=== PATIENT | female | born 1965 | race Caucasian/White ===

== ENCOUNTER → 2025-02-13 | Outpatient (CLI) | payer OTHER | LOC: M PLAIMG 11:55 | PROVIDERS: ATTEND Physician Assistant | DX: I77.810 Thoracic aortic ectasia (principal); I34.89 Other nonrheumatic mitral valve disorders; I36.1 Nonrheumatic tricuspid (valve) insufficiency ==

== ENCOUNTER → 2025-03-25 | Outpatient (REF) | payer OTHER ==
[2025-03-25 18:17] LABS: C REACTIVE PROTEIN QUANTITATIV < 0.50 MG/DL (<1.0)
[2025-03-25 18:28] LABS: ALT/SGPT 16 U/L (7.0-40); AST/SGOT 21 U/L (<34); RHEUMATOID FACTOR QUANT < 3.5 IU/ML (<14)
== END ==
LOC: M LAB REF 16:46
PROVIDERS: ATTEND Internal Medicine Pulmonary Disease
DX: J84.10 Pulmonary fibrosis, unspecified (principal)